=== PATIENT | female | born 1960 | race Caucasian/White ===

== ENCOUNTER 2024-03-19 12:41 | Emergency (ER) | payer OTHER, SELFPAY ==
[2024-03-19] VITALS (14 sets, daily range): BP systolic 111–160; BP diastolic 60–114; BMI 30.7
[2024-03-19] MEDS: MORPHINE SULFATE 4 MG IV (13:54)
--- NOTE | 2024-03-19 14:00 | ED.GENMED ---
History of Present Illness
General
Chief Complaint: Musculo-Skeletal Complaint
Source: patient
Exam Limitations: none
Time Seen by Provider: 03/19/24 13:38
Nursing documentation reviewed up to this point in time: agreed with
History of Present Illness
History of Present Illness:
Patient is a 63-year-old female with bilateral hip replacements was sitting low on a garden stool twisted and felt pain to the left hip. She presented via EMS and was given fentanyl and route. Pt had this left hip replaced by Dr caruso. She was
given morphine here in the ER prior to my exam and still complains of intense pain does not feel like she can get x-ray.
Past History
Past History
ED Past Medical History: HTN, Hypercholesterolemia and Other (Migraines); Negative CAD
ED Past Surgical History: Urological (Lithotripsy, ureteroscopy)
Social History
Tobacco: Non-smoker
Alcohol: Occasional
Drug: None
Personal:
Living: with family
Employment: Employed
Review of Systems
Review of Systems
Allergies reviewed?: Yes
All Other Systems: ROS reviewed and negative except as documented in HPI and ROS
Constitutional: Reports no symptoms; Denies fever, fatigue or chills
Musculoskeletal: Reports other (left hip pain )
Skin: Reports no symptoms
Hematologic/Lymphatic: Reports no symptoms
Psychiatric: Reports no symptoms
Phy Exam
General Physical Exam
General Presentation: no apparent distress
General age: appears stated age
General Skin: warm and dry
General Habitus: normal
General Mental: alert
General Hydration: appears well hydrated
Neurological Exam
Neurological Exam: alert and oriented x3
Musculoskeletal Exam
Musculoskeletal Exam: other (Left lower extremity strong pulses left leg appears internally rotated)
Course
Orders/Labs/Results
Orders:
Orders
03/19/24 12:53
CR Hip - LT without Pel 1 Vw Urgent
Reason For Exam: hip dislocation
03/19/24 13:51
Morphine Sulfate 4 mg .ROUTE .STK-MED ONE
03/19/24 13:53
Morphine Sulfate 4 mg IV NOW STA
03/19/24 14:04
HYDROmorphone [Dilaudid] 0.5 mg IV NOW STA
03/19/24 15:01
Propofol [Diprivan] 20 ml .ROUTE .STK-MED
03/19/24 15:16
Hip, Left 1 View [CR Hip - LT without Pel 1 Vw] Urgent
Comment:
Reason For Exam: post hip reduction
Vital Signs
Initial and Last Documented VS:
Initial Vital Signs
Temp Pulse Resp BP Pulse Ox
97.5 F 73 20 156/84 100
03/19/24 12:45 03/19/24 12:45 03/19/24 12:45 03/19/24 12:45 03/19/24 12:45
Last Documented Vital Signs
Temp Pulse Resp BP Pulse Ox
97.9 F 81 11 137/60 100
03/19/24 15:46 03/19/24 16:15 03/19/24 16:15 03/19/24 16:00 03/19/24 15:46
Procedures
Moderate Sedation
ASA Risk Score: Class II
Chart and allergies reviewed: Yes
Consent for anesthesia obtained: Yes
Time out completed (validating right patient & procedure): Yes
Moderate Sedation Start Time(when first medication is given): 15:05
History of difficult intubation: No
Airway free of obstruction: Yes
Patient has a gag reflex: Yes
Patient is able to open mouth: Yes
Patient has no dentures: Yes
Patient has no loose teeth: Yes
Medication administered by Provider during Moderate Sedation: IV Propofol (mg)
Total dose administered: 140
Time drug administered: 15:05
Moderate Sedation Procedure End Time: 15:16
MDM/Problems Addressed
MDM/Problems Addressed:
Patient is a 61-year-old female with history of bilateral hip replacement left hip left hip done by Dr. Caruso here at [facility]. Patient was standing on a garden still twisted and felt popping and pain in her left hip unable to bear weight. She
arrived with dislocated left hip confirmed by x-ray. Patient ED physician moderate sedation was done and patient's hip was successfully reduced. Pt toleratd procedure well. non toxic well appearing.
Case reviewed with orthopedics Dr. Smiley beaver DC with immobilizerliam with close outpatient follow-up with Dr. Caruso
Chronic conditions affecting care:
htn b/l hip replacements
*Radiology
Radiology exam reviewed: radiology read reviewed
*Pulse Oximetry
Patient hypoxic: no
*Critical Care Note
Total Time (30-74mins, 75-104mins- exclusive of procedures): Not Applicable
ED Attending Note
-
Portions of this chart may have been created with voice recognition software.� Occasional wrong word or��sound alike� substitutions may have occurred due to the inherent limitations of voice recognition software.
Discharge Plan
Departure
Patient Disposition: Home (Routine Discharge)
Date of Disposition: 03/19/24
Time of Disposition: 16:16
Patient with high blood pressure during this ER visit?: Yes
Condition: Fair
Covid-19: Not Applicable
Discharge Problem:
Dislocation, hip
Instructions: Hip Dislocation (DC), Moderate Sedation in Adults (DC), BLOOD PRESSURE
Prescriptions:
No Action
atorvastatin 10 MG tablet
10 mg PO QPM
olmesartan 20 MG tablet
20 mg PO DAILY
tramadol 50 MG tablet
50 mg PO Q8HPRN PRN (Reason: pain) Qty: 30 0RF
docusate sodium 100 MG capsule
100 mg PO BID 0RF
Saccharomyces boulardii 250 MG capsule
250 mg PO BID 0RF
ciprofloxacin HCl [Cipro] 500 MG tablet
500 mg PO BID Qty: 12 0RF
lljqvw-ulmi-dl dnlr-aa-xejirfl [Hyophen] 1 EACH tablet
1 ea PO BID Qty: 10 0RF
Referrals:
Adrianna Barfield MD [Family Provider] -
Dragan Caruso MD [Active] -
Activity Restrictions/Additional Instructions:
As discussed wear immobilizer both day and night and use either walker.
. Call the orthopedic office on Thursday for follow-up with either Dr. Caruso or one of his physician assistants. return if any worsening of symptoms.
Interventions
Interventions:
*Risk Screen - Suicide Last Done: 03/19/24 12:52
*General Assessment Last Done: 03/19/24 12:52
*Neglect/Abuse Screening Last Done: 03/19/24 12:52
ED- Fall Risk Assessment Last Done: 03/19/24 14:00
*ED COVID-19 Vaccine History Last Done: 03/19/24 12:53
*Nursing Disposition Last Done: 03/19/24 17:56
ED-Musculoskeletal Assessment Last Done: 03/19/24 14:00
Discharge Date and Time
Discharge Date/Time: 03/19/24 17:56
Print Language: ARMENIAN
[2024-03-19] MEDS: DILAUDID 0.5 MG IV (14:10)
== END 2024-03-19 17:56 | disposition home or self-care (01) ==
LOC: EMR 12:41
PROVIDERS: EMERGENCY PHYSICIAN Emergency Medicine; FAMILY PHYSICIAN Internal Medicine
DX: T84.021A Dislocation of internal left hip prosthesis, initial encounter (principal); X58.XXXA Exposure to other specified factors, initial encounter; I10 Essential (primary) hypertension; E78.00 Pure hypercholesterolemia, unspecified; Z96.643 Presence of artificial hip joint, bilateral; Z96.642 Presence of left artificial hip joint
CPT/HCPCS: 99283; 27266; 96374; 96375; 73501

== ENCOUNTER → 2024-06-27 11:10 | Outpatient (REF) | payer OTHER, SELFPAY | LOC: WDC 11:10 | PROVIDERS: ATTENDING PHYSICIAN Internal Medicine | DX: Z12.31 Encounter for screening mammogram for malignant neoplasm of breast (principal) | CPT/HCPCS: 77063; 77067 ==

== ENCOUNTER → 2024-09-22 11:36 | Outpatient (REF) | payer OTHER, SELFPAY | LOC: UCDH 11:36 | PROVIDERS: ATTENDING PHYSICIAN Emergency Medicine; FAMILY PHYSICIAN Internal Medicine | DX: S69.91XA Unspecified injury of right wrist, hand and finger(s), initial encounter (principal) | CPT/HCPCS: 73110 ==